=== PATIENT | male | born 1975 | race African-American/Black ===

== ENCOUNTER 2023-08-29 23:29 | Emergency (ER) | payer MEDICAID ==
[~2023-08-29] VITALS: Ht 182.9 cm; Wt 100.0 kg
[2023-08-29 23:31] VITALS: TEMP 98.4
[2023-08-29 23:47] VITALS: BP 122/70; PULSE 80; RESP 12
[2023-08-30] MEDS ORDERED: DOXY-354 PO (00:07)
[2023-08-30] MEDS ORDERED: AZITHROMYCIN 500 MG TABLET PO ONE (00:15)
[2023-08-30] MEDS ORDERED: CefTRIAXone SODIUM 1 GM/VIAL IM ONE (00:15)
[2023-08-30] MEDS ORDERED: LIDOCAINE/PF 1% 2 ML VIAL IM ONE (00:15)
== END 2023-08-30 00:24 | disposition home or self-care (01) ==
LOC: EMS 23:32
DX: N34.2 Other urethritis (principal); F17.210 Nicotine dependence, cigarettes, uncomplicated
CPT/HCPCS: 99283; 96372; J0696; J3490; Q9967